=== PATIENT | male | born 1975 | race Two or more races ===

== ENCOUNTER 2023-08-08 17:30 | Emergency (ER) | payer MEDICARE, MEDICAID ==
[~2023-08-08] VITALS: Ht 162.6 cm; Wt 75.0 kg
[~2023-08-08 17:30] MED LIST: SODIUM BICARB 8.4% 50Meq/50ml SYR INJ ONE
[2023-08-08] MEDS ORDERED: SODIUM BICARB 8.4% 50Meq/50ml SYR INJ ONE (17:31)
[2023-08-08] MEDS ORDERED: EPINEPHrine HCL 250 ML IV ONE ×2 (17:45→17:47)
[2023-08-08] MEDS ORDERED: DOPamine 1600MCG/ML D5W 250 ML IV ONE (17:45)
[2023-08-08] MEDS ORDERED: EPINEPHrine HCL 1 MG/10 ML SYRG ONE (17:46)
[2023-08-08] MEDS ORDERED: SODIUM BICARB 8.4% 50Meq/50ml SYR Vial IV ONE (17:47)
[2023-08-08 18:10] LABS: Basophils # (auto) 0 10 ^3/uL (0-0.2); Basophils % (auto) 0.3 % (0.0-2.0); Eosinophils # (auto) 0 10 ^3/uL (0-0.8); Eosinophils % (auto) 0.4 % (0.0-7.0); Hematocrit 34.2 % (41.0-53.0); Hemoglobin 10.7 g/dL (13.5-17.5); Lymphocytes # (auto) 3.8 10 ^3/uL (0.4-5.4); Lymphocytes % (auto) 34.8 % (10.0-50.0); Mean Corpuscular Hemoglobin 28.6 pg (28.0-32.0); Mean Corpuscular Hgb Conc. 31.4 g/dL (32.0-36.0); Mean Corpuscular Volume 91.3 fL (80.0-100.0); Monocytes # (auto) 0.7 10 ^3/uL (0-1.3); Monocytes % (auto) 5.9 % (0.0-12.0); Neutrophils # (auto) 6.5 10 ^3/uL (1.6-8.6); Neutrophils % (auto) 58.6 % (37.0-80.0); Nucleated Red Blood Cells % 0.3 %; Red Blood Cells 3.75 10^6/uL (4.5-5.90); Red Cell Distribution Width 16.7 % (11.8-14.3)
[2023-08-08 18:26] LABS: Alkaline Phosphatase 207 U/L (46-116)
[2023-08-08 18:27] LABS: Alanine Aminotransferase 267 U/L (7-40); Albumin 3.4 g/dL (3.2-4.8); Anion Gap 18 (5-15); Aspartate Aminotransferase 401 U/L (13-40); BUN/Creatinine Ratio 6.1 (10.0-20.0); Bilirubin, Total 0.2 mg/dL (0.2-1.0); Blood Urea Nitrogen 34 mg/dL (9-23); Calcium 9.2 mg/dL (8.7-10.4); Carbon Dioxide 30 mmol/L (20-30); Chloride 92 mmol/L (98-107); Glucose 275 mg/dL (74-106); Lipase 73 U/L (12-53); Potassium 3.9 mmol/L (3.5-5.1); Sodium 140 mmol/L (136-145); Total Protein 5.8 g/dL (5.7-8.2)
[2023-08-08 18:28] LABS: INR 1.13 (0.9-1.15); Prothrombin Time 11.9 sec (9.3-11.8)
[2023-08-08 19:02] VITALS: PULSE 84
== END 2023-08-08 18:23 ==
LOC: EDBD 17:30 → ER 17:30
DX: I46.9 Cardiac arrest, cause unspecified (principal); N18.9 Chronic kidney disease, unspecified
CPT/HCPCS: 36415; 80053; 83690; 84484; 85025; 85610; 92950; 93005; 99285; J0171